=== PATIENT | male | born 1955 | race Caucasian/White ===

== ENCOUNTER 2020-06-18 21:49 | Emergency (ER) | payer MEDICARE ==
--- NOTE | 2020-06-18 23:26 | ER Document Report ---
ED Medical Screen (RME) - General Chief Complaint: Rectal Bleeding Stated Complaint: RECTAL BLEEDING Time Seen by Provider: 06/18/20 23:20 Mode of Arrival: Ambulatory Information source: Patient Notes: 65-year-old male presented to ED for bright red rectal bleeding. He states he has had a history of hemorrhoids fissures and polyps. He states he had a hard time going to the bathroom tonight and had to strain at the stool and a big gush of blood came out. He states he has towels in his underwear at this time. He states he did start bleeding at about 830 tonight. He is alert oriented r espirations regular nonlabored speaking in full sentences. Blood pressure is 151/91 and his heart rate is 106. Will order blood urine and type and screen at this time. I have greeted and performed a rapid initial assessment of this patient. A comprehensive ED assessment and evaluation of the patient, analysis of test results and completion of medical decision making process will be conducted by an additional ED providers. Physical Exam - Vital signs Vitals: Temp Pulse Resp BP Pulse Ox 98.4 F 108 H 18 151/94 H 96 06/18/20 22:08 06/18/20 22:08 06/18/20 22:08 06/18/20 22:08 06/18/20 22:08 Course - Vital Signs Vital signs: Temp Pulse Resp BP Pulse Ox 98.4 F 108 H 18 151/94 H 96 06/18/20 22:08 06/18/20 22:08 06/18/20 22:08 06/18/20 22:08 06/18/20 22:08
[2020-06-19 00:02] LABS: ABSOLUTE BASOPHILS # (AUTO) 0.1 10^3/uL (0.0-0.2); ABSOLUTE EOSINOPHILS # (AUTO) 0.2 10^3/uL (0.0-0.6); ABSOLUTE LYMPHOCYTES (AUTO) 1.3 10^3/uL (0.5-4.7); ABSOLUTE MONOCYTES (AUTO) 0.8 10^3/uL (0.1-1.4); ABSOLUTE NEUT (AUTO) 7.5 10^3/uL (1.7-8.2); BASOPHILS % (AUTO) 0.6 % (0-2); EOSINOPHILS % (AUTO) 2.5 % (0-6); HEMATOCRIT 45.9 % (37.9-51.0); HEMOGLOBIN 15.7 g/dL (13.5-17.0); LYMPHOCYTES % (AUTO) 12.8 % (13-45); MEAN CORPUSCULAR HEMOGLOBIN 29.6 pg (27.0-33.4); MEAN CORPUSCULAR HGB CONC 34.2 g/dL (32.0-36.0); MEAN CORPUSCULAR VOLUME 87 fl (80-97); MONOCYTES % (AUTO) 8.1 % (3-13); PLATELET COUNT 233 10^3/uL (150-450); RED BLOOD COUNT 5.29 10^6/uL (4.35-5.55); TOTAL CELLS COUNTED % (AUTO) 100 %; WHITE BLOOD COUNT 9.9 10^3/uL (4.0-10.5)
[2020-06-19 00:11] LABS: ALBUMIN 4.7 g/dL (3.5-5.0); ALKALINE PHOSPHATASE 82 U/L (38-126); ANION GAP 10 (5-19); ASPARTATE AMINO TRANSFERASE 31 U/L (17-59); BILIRUBIN,DIRECT 0.1 mg/dL (0.0-0.4); BILIRUBIN,TOTAL 0.5 mg/dL (0.2-1.3); BLOOD UREA NITROGEN 26 mg/dL (7-20); CALCIUM 10.4 mg/dL (8.4-10.2); CARBON DIOXIDE 30 mmol/L (22-30); CHLORIDE 99 mmol/L (98-107); GLUCOSE 113 mg/dL (75-110); POTASSIUM 3.4 mmol/L (3.6-5.0); TOTAL PROTEIN 7.5 g/dL (6.3-8.2)
[2020-06-19 00:45] LABS: APPEARANCE,URINE SLIGHTLY-CLOUDY; BILIRUBIN,URINE NEGATIVE (NEGATIVE); COLOR,URINE YELLOW; GLUCOSE, URINE NEGATIVE (NEGATIVE); KETONES,URINE 20 mg/dL (NEGATIVE); LEUKOCYTE ESTERASE,URINE NEGATIVE (NEGATIVE); NITRITE,URINE NEGATIVE (NEGATIVE); PROTEIN,URINE NEGATIVE (NEGATIVE); URINE SPECIFIC GRAVITY 1.025; UROBILINOGEN,URINE NEGATIVE mg/dL (<2.0)
[2020-06-19] MEDS ORDERED: POTASSIUM CHLORIDE 20 MEQ PACKET PO ONE (04:04)
--- NOTE | 2020-06-19 04:11 | ER Document Report ---
ED GI Bleed / Rectal Pain - General Chief Complaint: Rectal Bleeding Stated Complaint: RECTAL BLEEDING Time Seen by Provider: 06/18/20 23:20 Primary Care Provider: LALY QUEVEDO MD [ACTIVE STAFF] - Follow up in 3-5 days Mode of Arrival: Ambulatory - [facility] Notes: Patient is a 65-year-old male with a past medical history of hypertension who presents with rectal bleeding. Patient states he was going to the bathroom today to have a bowel movement and was straining. He then had bright red blood per rectum. Patient states he put pressure on it and the bleeding stopped. He denies any abdominal pain. No fevers or chills. No lightheadedness or dizziness. No chest pain or shortness of breath. Patient states many years ago he did have fistulas repaired. He also had polyps. His last colonoscopy was 8 years ago. Is not on any blood thinners. Bleeding is currently stopped. - Related Data Home Medications: trelegy, rescue inhaler htn depression, synthroid cholesterol Past Medical History - General Information source: Patient - Social History Smoking Status: Former Smoker Chew tobacco use (# tins/day): No Frequency of alcohol use: None Family History: Reviewed & Not Pertinent Review of Systems - Review of Systems Notes: CONSTITUTIONAL: No fever, fatigue or weight loss. SKIN: No rash. HENT: No congestion, ear pain, or sore throat. ENDOCRINE: No thyroid problems. No polyuria or polydipsia. CARDIOVASCULAR: No chest pain or edema. RESPIRATORY: No cough, shortness of breath, congestion, or wheezing. GASTROINTESTINAL: No abdominal pain, nausea, vomiting. Positive for hard stool and rectal bleed. GENITOURINARY: No dysuria. MUSCULOSKELETAL: No joint pain or swelling. NEUROLOGIC: No seizures. No headache, focal weakness or sensory changes. HEMATOLOGIC: No unusual bruising or bleeding. PSYCHIATRIC: No depression or anxiety. Physical Exam - Vital signs Vitals: Temp Pulse Resp BP Pulse Ox 98.4 F 108 H 18 151/94 H 96 06/18/20 22:08 06/18/20 22:08 06/18/20 22:08 06/18/20 22:08 06/18/20 22:08 - General General appearance: Appears well Notes: VITAL SIGNS: Within normal limits. GENERAL: No acute distress, non-toxic appearance. HEAD: Normal with no signs of head trauma. EYES: PERRLA, EOMI, conjunctiva normal, no discharge. EARS: Hearing grossly intact. NOSE: Normal. NECK: Normal range of motion, no tenderness, supple, no lymphadenopathy, No adenopathy, no JVD. CHEST: Clear breath sounds bilaterally. No wheezes, rales, or rhonchi. CARDIAC: Regular rate and rhythm. S1 and S2, without murmurs, gallops, or rubs. VASCULAR: No Edema. ABDOMEN: Normal and soft with no tenderness, no masses or pulsatile masses. GENITOURINARY: Normal, No tenderness. Exam performed with senior account manager. No gross blood on exam. Small hemorrhoids noted. No obvious fissures. MUSCULOSKELETAL: Good range of motion of all major joints. Extremities without clubbing, cyanosis or edema. NEUROLOGICAL: Alert and oriented x 3. No focal sensory or strength deficits. Speech normal. Follows commands appropriately. PSYCHIATRIC: Normal Affect, judgement and mood. SKIN: Normal appearance with no rashes or lesions. Course - Re-evaluation Re-evalutation: 06/19/20 04:11 Likely patient had bleeding from hemorrhoids. He states he has had pain with wiping. I was unable to obtain any stool on Hemoccult. He did have a tiny drop of blood. No gross bleeding. No thrombosed hemorrhoids. Patient's bleeding is stopped. Hemoglobin is normal. He is in no acute distress. I had a long conversation with the patient about his results. I will refer him to GI. Patient will also be prescribed proctofoam. States that he has not been drinking enough water and has been straining. I instructed him to make sure he is staying hydrated. He will be placed on MiraLAX. He was also instructed on sitz bath's. Was given strict return precautions including return of bleeding, lightheadedness, any other concerning symptoms. 06/19/20 06:13 - Vital Signs Vital signs: Temp Pulse Resp BP Pulse Ox 98.6 F 70 18 152/92 H 96 06/19/20 05:15 06/19/20 05:15 06/18/20 22:08 06/19/20 05:15 06/19/20 05:15 - Laboratory Result Diagrams: 06/18/20 23:39 06/18/20 23:39 Laboratory results interpreted by me: 06/18/20 06/18/20 06/19/20 23:39 23:39 00:15 Lymph % (Auto) 12.8 L Potassium 3.4 L BUN 26 H Glucose 113 H Calcium 10.4 H Urine Ketones 20 H Discharge - Discharge Clinical Impression: Rectal bleeding Condition: Stable Disposition: HOME, SELF-CARE Instructions: Rectal Bleeding, Unclear Cause ([facility]) Additional Instructions: Your work-up today is reassuring. Please follow-up with your family doctor as well as GI. Please return to the ER for any return of bleeding. Prescriptions: Polyethylene Glycol 3350 [Miralax Powder 17 gm/Packet] 1 packet PO DAILY #5 pkg Pramoxine HCl [Proctofoam] 15 gm TP BID #1 foam Referrals: LALY QUEVEDO MD [ACTIVE STAFF] - Follow up in 3-5 days
[2020-06-19 05:17] VITALS: BP 152/92
== END 2020-06-19 05:27 | disposition home or self-care (01) ==
LOC: ER 21:49
DX: K62.5 Hemorrhage of anus and rectum (principal); K64.9 Unspecified hemorrhoids; R19.4 Change in bowel habit; Z79.899 Other long term (current) drug therapy; Z79.51 Long term (current) use of inhaled steroids; Z87.891 Personal history of nicotine dependence
CPT/HCPCS: 99283; 86900; 86901; 36415; 86850; 85025; 82270; 80053; 81001; J3490